=== PATIENT | male | born 1990 | race Caucasian/White ===

== ENCOUNTER 2019-03-06 11:08 | Emergency (ER) | payer BC ==
[~2019-03-06] VITALS: Ht 175.3 cm; Wt 84.0 kg
[2019-03-06] MEDS ORDERED: aspirin 81mg tab.chew PO ONE (13:10)
[2019-03-06] MEDS ORDERED: metoprolol tartrate 1mg/ml inj IV ONE ×2 (13:15→13:45)
--- NOTE | 2019-03-06 13:26 | NUR ---
NOTIFIED MD ABOUT HR: 57 AND BP: 119/58 AND THE ORDER OF LABETOLOL. MD SAID TO GIVE LABETOLOL, "START AT 2.5MG"
[2019-03-06 13:38] LABS: BASOPHILS % (AUTO) 0.4 % (0-1); EOSINOPHILS # (AUTO) 0.3 X10'3 (0-0.9); EOSINOPHILS % (AUTO) 7.6 % (0-6); HEMATOCRIT 45.2 % (42.0-52.0); HEMOGLOBIN 15.4 g/dl (14.0-17.9); LYMPHOCYTES # (AUTO) 0.9 X10'3 (1.1-4.8); LYMPHOCYTES % (AUTO) 20.1 % (21-51); MEAN CORPUSCULAR HEMOGLOBIN 31.6 PG (27.0-31.0); MEAN CORPUSCULAR HGB CONC 34.1 g/dL (33.0-36.5); MEAN CORPUSCULAR VOLUME 92.6 FL (78-98); MEAN PLATELET VOLUME 7.2 FL (7.4-10.4); MONOCYTES # (AUTO) 0.4 X10'3 (0-0.9); MONOCYTES % (AUTO) 8.8 % (2-12); NEUTROPHILS # (AUTO) 2.8 X10'3 (1.8-7.7); NEUTROPHILS % (AUTO) 63.1 % (42-75); PLATELET COUNT 187 X10'3 (140-440); RED BLOOD COUNT 4.88 X10'6 (4.70-6.10); RED CELL DISTRIBUTION WIDTH 13.1 % (11.5-14.5); WHITE BLOOD COUNT 4.4 X10'3 (4.5-11.0)
--- NOTE | 2019-03-06 13:45 | NUR ---
NOTIFIED CHARGE NURSE OF ORDER AND CONFIRMED WITH MD ABOUT HIM WANTING TO START OUT AT 2.5MG OF LOPRESSOR AND HE CONFIRMED THE ORDER. DOCUMENTED A VERBAL ORDER PER DR. PICKENS OF 2.5 MG OF LOPRESSOR. BP WILL BE TAKEN [id number].
[2019-03-06 14:04] LABS: ALANINE AMINOTRANSFERASE 43 U/L (12-78); ALBUMIN 3.8 G/DL (3.4-5.0); ALBUMIN/GLOBULIN RATIO 0.9 (1.1-1.5); ALKALINE PHOSPHATASE 80 IU/L (46-116); ANION GAP 9 (8-16); ASPARTATE AMINO TRANSFERASE 25 U/L (10-37); BILIRUBIN,TOTAL 1.3 MG/DL (0.1-1.0); BLOOD UREA NITROGEN 18 MG/DL (7-18); BUN/CREATININE RATIO 13.8 (5.4-32.0); CALCIUM 8.7 MG/DL (8.5-10.1); CHLORIDE 103 MMOL/L (99-107); GLUCOSE 95 MG/DL (70-104); MAGNESIUM 2.1 MG/DL (1.5-2.4); POTASSIUM 4.1 MMOL/L (3.5-5.1); SODIUM 140 MMOL/L (135-145); TOTAL CARBON DIOXIDE 27.9 MMOL/L (24-32); TOTAL PROTEIN 7.9 G/DL (6.4-8.2); eGFR 65 ML/MIN
[2019-03-06] MEDS ORDERED: LANS30CA37 PO (14:24)
[2019-03-06] MEDS ORDERED: METO-467 PO (14:24)
--- NOTE | 2019-03-06 14:30 | NUR ---
WALKED PT. AROUND THE ER AND WAS NOT DIZZY AND WAS NOT COMPLAINING OF ANY PALPITATIONS. HR: 52, BP: 116/60. PT. WAS IN NO DISTRESS.
[2019-03-06 14:54] VITALS: BP 114/63
== END 2019-03-06 14:57 | disposition home or self-care (01) ==
LOC: ER 11:09
DX: R00.2 Palpitations (principal); R42 Dizziness and giddiness; Z98.890 Other specified postprocedural states; Z79.899 Other long term (current) drug therapy
CPT/HCPCS: 36415; 71045; 80053; 83735; 83880; 84484; 85025; 93005; 96374; 99284; J3490